=== PATIENT | female | born 1960 | race Caucasian/White ===

== ENCOUNTER 2025-05-23 16:17 | Outpatient (REF) | payer MEDICARE, BC, SELFPAY ==
[2025-05-23 16:55] LABS: RBC 0-2 HPF (0-2); WBC Negative HPF (0-5)
== END 2025-05-23 16:18 | disposition home or self-care (01) ==
LOC: NCHCN 16:17
PROVIDERS: Visit Provider Internal Medicine
DX: R39.9 Unspecified symptoms and signs involving the genitourinary system (principal)
CPT/HCPCS: 81015; 87086

== ENCOUNTER 2025-07-18 14:40 | Outpatient (REF) | payer MEDICARE, BC, SELFPAY ==
[2025-07-18 14:55] LABS: C & S Indicated? No; RBC 0-2 HPF (0-2); WBC 0-2 HPF (0-5)
== END 2025-07-18 14:41 | disposition home or self-care (01) ==
LOC: NCHCN 14:40
PROVIDERS: Visit Provider Internal Medicine
DX: R31.0 Gross hematuria (principal); R82.89 Other abnormal findings on cytological and histological examination of urine
CPT/HCPCS: 81015